=== PATIENT | male | born 1990 | race Caucasian/White ===

== ENCOUNTER 2017-03-08 01:40 | Emergency (ER) | payer MEDICAID ==
[~2017-03-08] VITALS: Ht 175.3 cm; Wt 73.0 kg
[2017-03-08] MEDS ORDERED: TETANUS, DIPHTHERIA, PERTUSSIS VAC/PF 0.5ML (>7YR OLD) IM ONE (02:45)
[2017-03-08] MEDS ORDERED: KETOROLAC 60MG/2ML VIAL IM ONE (02:45)
[2017-03-08] MEDS ORDERED: BACITRACIN ZINC OINT UDPKT TOP ONE (02:45)
[2017-03-08 05:53] VITALS: BP 100/46
== END 2017-03-08 05:56 | disposition home or self-care (01) ==
LOC: ER 02:17
DX: S01.01XA Laceration without foreign body of scalp, initial encounter (principal); F12.10 Cannabis abuse, uncomplicated; M10.9 Gout, unspecified; F17.200 Nicotine dependence, unspecified, uncomplicated; Y08.89XA Assault by other specified means, initial encounter; Y93.01 Activity, walking, marching and hiking; Y99.8 Other external cause status; Y92.410 Unspecified street and highway as the place of occurrence of the external cause
CPT/HCPCS: 12002; 70450; 90471; 90715; 96372; 99284; J1885; X7700; Z7610

== ENCOUNTER 2017-03-20 15:19 | Emergency (ER) | payer MEDICAID ==
[~2017-03-20] VITALS: Ht 172.7 cm; Wt 73.0 kg
[2017-03-20 15:27] VITALS: BP 143/84
== END 2017-03-20 17:00 | disposition home or self-care (01) ==
LOC: ER 16:17
DX: S01.01XD Laceration without foreign body of scalp, subsequent encounter (principal); F17.200 Nicotine dependence, unspecified, uncomplicated; M10.9 Gout, unspecified; X58.XXXD Exposure to other specified factors, subsequent encounter; Y93.89 Activity, other specified; Y99.8 Other external cause status; Y92.89 Other specified places as the place of occurrence of the external cause
CPT/HCPCS: 99281; Z7610; 99282

== ENCOUNTER 2017-09-19 16:17 | Emergency (ER) | payer MEDICAID ==
[~2017-09-19] VITALS: Ht 175.3 cm; Wt 71.0 kg
[2017-09-19 17:05] LABS: BASOPHILS % 0.4 % (0.0-2.0); EOSINOPHILS % 0.2 % (0.0-5.0); HEMATOCRIT. 39.8 % (42.0-52.0); HEMOGLOBIN. 13.6 g/dL (14.0-18.0); LYMPHOCYTES % 27.6 % (20.0-50.0); MEAN CORPUSCULAR HEMOGLOBIN 29.4 pg (28.0-32.0); MEAN CORPUSCULAR VOLUME 86.3 fL (80.0-94.0); MEAN PLATELET VOLUME 8.3 fl (7.4-10.4); MONOCYTES % 10.3 % (2.0-8.0); NEUTROPHILS % 61.5 % (40.0-76.0); PLATELET 361 x1000/uL (130-400); RED BLOOD CELL COUNT 4.62 mill/uL (4.7-6.1)
[2017-09-19 17:09] LABS: CHLORIDE 102 mEq/L (98-107)
[2017-09-19 17:10] LABS: INR 1.2; PROTHROMBIN TIME 12.1 sec (9.4-11.6)
[2017-09-19] MEDS ORDERED: KETOROLAC 60MG/2ML VIAL IM ONE (18:30)
[2017-09-19 21:30] VITALS: BP 118/75
== END 2017-09-19 21:41 | disposition home or self-care (01) ==
LOC: ER 17:50
DX: M79.671 Pain in right foot (principal); M19.90 Unspecified osteoarthritis, unspecified site; M79.642 Pain in left hand; M10.9 Gout, unspecified; F17.200 Nicotine dependence, unspecified, uncomplicated
CPT/HCPCS: 36415; 73630; 80053; 85025; 85610; 96372; 99285; J1885

== ENCOUNTER 2018-07-25 09:55 | Emergency (ER) | payer MEDICAID ==
[~2018-07-25] VITALS: Ht 172.7 cm; Wt 73.0 kg
[2018-07-25 10:08] VITALS: BP 125/68
[2018-07-25] MEDS ORDERED: IBUPROFEN 600MG TABLET PO ONE (12:00)
== END 2018-07-25 12:30 | disposition home or self-care (01) ==
LOC: ER 09:55
DX: L02.31 Cutaneous abscess of buttock (principal); F17.200 Nicotine dependence, unspecified, uncomplicated
CPT/HCPCS: 99283

== ENCOUNTER 2019-02-15 07:58 | Emergency (ER) | payer MEDICAID ==
[~2019-02-15] VITALS: Ht 172.7 cm; Wt 58.0 kg
[2019-02-15 08:06] VITALS: BP 118/75
[2019-02-15] MEDS ORDERED: ACETAMINOPHEN 325MG TABLET PO ONE (08:30)
[2019-02-15] MEDS ORDERED: LIDOCAINE HCL/PF 1% 10 MG/ML 5ML VIAL IJ ONE (08:30)
[2019-02-15] MEDS ORDERED: SULFAMETHOXAZOLE/TRIMETHOPRIM 400/80MG TAB PO ONE (08:30)
[2019-02-15] MEDS ORDERED: BACITRACIN ZINC OINT UDPKT TOP ONE ×2 (08:30→08:45)
[2019-02-15] MEDS ORDERED: LIDOCAINE/PRILOCAINE CREAM 5 GM TUBE TOP ONE (08:30)
[2019-02-15] MEDS ORDERED: BACITRACIN 15GM TUBE TOP ONE (08:45)
== END 2019-02-15 09:30 | disposition home or self-care (01) ==
LOC: ER 08:15
DX: L02.512 Cutaneous abscess of left hand (principal); F12.10 Cannabis abuse, uncomplicated
CPT/HCPCS: 99283; J3490; Z7610

== ENCOUNTER 2019-04-02 18:39 | Inpatient (IN) | payer MEDICAID ==
[~2019-04-02] VITALS: Ht 175.3 cm; Wt 70.3 kg
[2019-04-02] MEDS ORDERED: ACETAMINOPHEN 325MG TABLET PO STA (19:55)
[2019-04-02] MEDS ORDERED: SODIUM CHLORIDE 0.9% 1000ML BAG (SEPSIS BOLUS) IV ONE (20:00)
[2019-04-02] MEDS ORDERED: NYSTATIN 100,000 UNITS/ML 5ML UDC SSW ONE (20:00)
[2019-04-02 21:03] LABS: BASOPHILS % 0.2 % (0.0-2.0); HEMATOCRIT. 25.7 % (42.0-52.0); HEMOGLOBIN. 8.2 g/dL (14.0-18.0); LYMPHOCYTES % 11.1 % (20.0-50.0); MEAN CORPUSCULAR HEMOGLOBIN 26.4 pg (28.0-32.0); MEAN CORPUSCULAR VOLUME 82.2 fL (80.0-94.0); MEAN PLATELET VOLUME 8.5 fl (7.4-10.4); MONOCYTES % 8.4 % (2.0-8.0); NEUTROPHILS % 80.3 % (40.0-76.0); PLATELET 391 x1000/uL (130-400); RED BLOOD CELL COUNT 3.12 mill/uL (4.7-6.1)
[2019-04-02 21:06] LABS: CHLORIDE 103 mEq/L (98-107)
[2019-04-02 21:10] LABS: ETHANOL BLOOD < 10 mg/dL
[2019-04-02 21:17] LABS: CLARITY URINE CLEAR (CLEAR); COLOR URINE DARK YELLOW (YELLOW); KETONES URINE TRACE (NEGATIVE); LEUKOCYTE ESTERASE URINE 1+ (NEGATIVE); NITRITE URINE NEGATIVE (NEGATIVE); OCCULT BLOOD URINE NEGATIVE (NEGATIVE); PROTEIN URINE 2+ (NEGATIVE); SPECIFIC GRAVITY URINE 1.022 (1.005-1.030)
[2019-04-02 21:28] LABS: *AMPHETAMINES SCREEN URINE PRESUMTIVE POSITIVE (NEGATIVE); *BARBITURATES SCREEN URINE NEGATIVE (NEGATIVE); *BENZODIAZEPINES SCREEN URINE NEGATIVE (NEGATIVE); *COCAINE SCREEN URINE NEGATIVE (NEGATIVE); METHADONE URINE SCREEN NEGATIVE (NEGATIVE); OPIATES URINE SCREEN PRESUMTIVE POSITIVE (NEGATIVE)
[2019-04-02 21:29] LABS: CANNABINOID URINE SCREEN NEGATIVE (NEGATIVE); PHENCYCLIDINE URINE SCREEN NEGATIVE (NEGATIVE)
[2019-04-02] MEDS ORDERED: AZITHROMYCIN 500 MG in DEXT 5% WATER 250 ML IV ONE (22:15)
[2019-04-02] MEDS ORDERED: FLUCONAZOLE 100MG TABLET PO ONE (22:15)
[2019-04-02] MEDS ORDERED: CEFTRIAXONE 1 G PREMIX 50 ML IV ONE (22:15)
[2019-04-02] MEDS ORDERED: FLUCONAZOLE 150MG TABLET PO NR (23:45)
[2019-04-03 00:32] LABS: BG BASE EXCESS -1.5 mmol/L (-2.0-2.0); BG CARBOXYHEMOGLOBIN 1.3 % (0.5-1.5); BG DEOXYHEMOGLOBIN 4.4 % (0.0-5.0); BG FRACTION INSPIRED OXYGEN 21; BG HCO3 ACT 23.1 mmol/L (22.0-26.0); BG METHEMOGLOBIN 0.3 % (0.0-1.5); BG OXYGEN SATURATION 95.5 % (92.0-98.5); BG PCO2 37.9 mmHg (35.0-45.0); BG PH 7.402 (7.350-7.450); BG PO2 85.3 mmHg (75.0-100.0); BG SAMPLE SITE LEFT RADIAL; BG TOTAL HEMOGLOBIN 7.7 g/dL (12.0-18.0); BG VENT MODE ROOM AIR
[2019-04-03 12:00] VITALS: BP 104/58
[2019-04-03] MEDS ORDERED: DOCUSATE SODIUM 100MG CAPSULE PO PRN (12:00)
[2019-04-03] MEDS ORDERED: IPRATROPIUM/ALBUTEROL 0.5-3(2.5)MG/3ML NEB NEB PRN (12:00)
[2019-04-03] MEDS ORDERED: ONDANSETRON HCL 4MG/2ML INJ IV PRN (12:00)
[2019-04-03] MEDS ORDERED: MAGNESIUM/ALUMINUM HYDROXIDE/SIMETHICONE 30ML UDC PO PRN (12:00)
[2019-04-03] MEDS ORDERED: CLONIDINE 0.1MG TABLET PO PRN (12:00)
[2019-04-03 13:06] VITALS: BP 107/62
[2019-04-03] MEDS: ENOXAPARIN 40MG/0.4ML SYR SUBCUT SCH (13:44)
[2019-04-03] MEDS: NYSTATIN 100,000 UNITS/ML 5ML UDC SSW SCH ×2 (13:44→18:19)
[2019-04-03] MEDS ORDERED: INFLUENZA VIRUS VACCINE(AFLURIA) 0.5ML SYR IM ONE (14:45)
[2019-04-03] MEDS ORDERED: PNEUMOCOCCAL 23-VAL P-SAC VAC 0.5 ML IM ONE (14:45)
[2019-04-03] MEDS ORDERED: GUAIFENESIN/CODEINE 100-10MG/5ML UDC PO PRN (15:15)
[2019-04-03 16:00] VITALS: BP 99/69
[2019-04-03] MEDS: NICOTINE 14MG PATCH TD SCH (16:15)
[2019-04-03] MEDS ORDERED: SODIUM CHLORIDE 10% FOR INH 15ML VIAL NEB INH NR (17:00)
[2019-04-03 17:02] LABS: HEPATITIS B SURFACE ANTIGEN NEGATIVE
[2019-04-03] MEDS: CEFTRIAXONE 1 G PREMIX 50 ML IV SCH (17:18)
[2019-04-03] MEDS: AZITHROMYCIN 500 MG in DEXT 5% WATER 250 ML IV SCH (17:19)
[2019-04-03 17:31] LABS: HEPATITIS A AB IGM NEGATIVE (NEGATIVE)
[2019-04-03 20:00] VITALS: BP 105/46
[2019-04-03] MEDS: ACETAMINOPHEN 325MG TABLET PO PRN (21:07)
[2019-04-04] VITALS (14 sets, daily range): BP systolic 89–127; BP diastolic 40–90
[2019-04-04] MEDS: NYSTATIN 100,000 UNITS/ML 5ML UDC SSW SCH ×5 (01:44→23:58)
[2019-04-04] MEDS: MORPHINE SULFATE 2 MG/ML CPJ (NOT FOR IM USE) IV PRN ×2 (03:53→17:45)
[2019-04-04] MEDS: LORAZEPAM 2MG/ML CPJ IV PRN (06:48)
[2019-04-04 07:37] LABS: CHLORIDE 109 mEq/L (98-107)
[2019-04-04 07:52] LABS: PHOSPHORUS 3.2 mg/dL (2.5-4.9)
[2019-04-04 08:22] LABS: BASOPHILS % 1.1 % (0.0-2.0); LYMPHOCYTES % 21.8 % (20.0-50.0); MEAN CORPUSCULAR HEMOGLOBIN 26.9 pg (28.0-32.0); MEAN CORPUSCULAR VOLUME 82.8 fL (80.0-94.0); MEAN PLATELET VOLUME 8.5 fl (7.4-10.4); MONOCYTES % 8.5 % (2.0-8.0); NEUTROPHILS % 68.6 % (40.0-76.0); PLATELET 348 x1000/uL (130-400); RED BLOOD CELL COUNT 2.51 mill/uL (4.7-6.1); RED CELL DISTRIBUTION WIDTH 17.9 % (11.6-14.6)
[2019-04-04] MEDS: NICOTINE 14MG PATCH TD SCH (08:31)
[2019-04-04 09:09] LABS: HEMATOCRIT. 20.8 % (42.0-52.0); HEMOGLOBIN. 6.7 g/dL (14.0-18.0)
[2019-04-04] MEDS ORDERED: POTASSIUM CHLORIDE 20MEQ TABLET SR PO NR (09:30)
[2019-04-04] MEDS: ENOXAPARIN 40MG/0.4ML SYR SUBCUT SCH (12:00)
[2019-04-04] MEDS: CEFTRIAXONE 1 G PREMIX 50 ML IV SCH (16:55)
[2019-04-04] MEDS: AZITHROMYCIN 500 MG in DEXT 5% WATER 250 ML IV SCH (17:01)
[2019-04-04] MEDS: ACETAMINOPHEN 325MG TABLET PO PRN (23:58)
[2019-04-05] VITALS: BP 123/78
[2019-04-05] MEDS: ACETAMINOPHEN 325MG TABLET PO PRN (00:02)
[2019-04-05 01:23] LABS: HEMATOCRIT 29.9 % (42.0-52.0); HEMOGLOBIN 9.4 g/dL (14.0-18.0)
[2019-04-05 04:00] VITALS: BP 105/59
[2019-04-05] MEDS: NYSTATIN 100,000 UNITS/ML 5ML UDC SSW SCH ×3 (05:44→17:35)
[2019-04-05 07:13] LABS: BASOPHILS % 0.9 % (0.0-2.0); HEMATOCRIT. 30.9 % (42.0-52.0); HEMOGLOBIN. 9.8 g/dL (14.0-18.0); LYMPHOCYTES % 20.6 % (20.0-50.0); MEAN CORPUSCULAR HEMOGLOBIN 25.8 pg (28.0-32.0); MEAN CORPUSCULAR VOLUME 81.2 fL (80.0-94.0); MEAN PLATELET VOLUME 8.4 fl (7.4-10.4); NEUTROPHILS % 70.5 % (40.0-76.0); PLATELET 381 x1000/uL (130-400); RED BLOOD CELL COUNT 3.81 mill/uL (4.7-6.1); RED CELL DISTRIBUTION WIDTH 20.6 % (11.6-14.6)
[2019-04-05 07:52] LABS: CHLORIDE 108 mEq/L (98-107)
[2019-04-05 08:00] VITALS: BP 114/72
[2019-04-05 08:05] LABS: TOTAL IRON BINDING CAPACITY 181 ug/dL (250-450)
[2019-04-05] MEDS: NICOTINE 14MG PATCH TD SCH (09:00)
[2019-04-05] MEDS: LORAZEPAM 2MG/ML CPJ IV PRN (09:16)
[2019-04-05] MEDS: ENOXAPARIN 40MG/0.4ML SYR SUBCUT SCH (11:51)
[2019-04-05 12:00] VITALS: BP 133/72
[2019-04-05] MEDS ORDERED: IOHEXOL-300 100 ML BOTTLE ONE (12:44)
[2019-04-05] MEDS ORDERED: BISACODYL 10MG SUPP PR NR (14:30)
[2019-04-05] MEDS ORDERED: SORBITOL 70% SOLN 30ML PO NR (15:00)
[2019-04-05 16:00] VITALS: BP 102/60
[2019-04-05] MEDS: CEFTRIAXONE 1 G PREMIX 50 ML IV SCH (16:43)
[2019-04-05] MEDS: AZITHROMYCIN 500 MG in DEXT 5% WATER 250 ML IV SCH (17:35)
[2019-04-05] MEDS ORDERED: FERROUS SULFATE 325MG TABLET PO SCH (17:50)
[2019-04-05 20:00] VITALS: BP 108/64
[2019-04-06] VITALS: BP 112/60
[2019-04-06] MEDS: NYSTATIN 100,000 UNITS/ML 5ML UDC SSW SCH ×2 (00:10→06:40)
[2019-04-06 04:00] VITALS: BP 112/60
[2019-04-06] MEDS: LORAZEPAM 2MG/ML CPJ IV PRN (07:29)
[2019-04-06] MEDS: NICOTINE 14MG PATCH TD SCH (07:29)
[2019-04-06 07:59] LABS: CHLORIDE 106 mEq/L (98-107)
[2019-04-06 08:01] LABS: BASOPHILS % 0.6 % (0.0-2.0); HEMATOCRIT. 33.6 % (42.0-52.0); HEMOGLOBIN. 10.9 g/dL (14.0-18.0); LYMPHOCYTES % 23.8 % (20.0-50.0); MEAN CORPUSCULAR HEMOGLOBIN 26.3 pg (28.0-32.0); MEAN PLATELET VOLUME 8.6 fl (7.4-10.4); MONOCYTES % 11.3 % (2.0-8.0); NEUTROPHILS % 64.3 % (40.0-76.0); PLATELET 377 x1000/uL (130-400); RED BLOOD CELL COUNT 4.15 mill/uL (4.7-6.1); RED CELL DISTRIBUTION WIDTH 19.8 % (11.6-14.6)
[2019-04-06] MEDS ORDERED: VALACYCLOVIR HCL 500MG TABLET PO SCH (09:00)
[2019-04-06] MEDS ORDERED: SULFAMETHOXAZOLE/TRIMETHOPRIM 800/160MG TABLET PO SCH (12:00)
[2019-04-07 10:06] LABS: HIV 1 ABS Positive (Negative); HIV 2 ABS Negative (Negative); HIV SCREEN 4G Reactive (Non Reactive); INTERPRETATION HIV-1 Positive (.)
[2019-04-08 19:10] LABS: *HSV 1 DNA PCR Negative (Negative); *HSV 2 DNA PCR Negative (Negative)
== END 2019-04-06 08:51 | disposition left against medical advice (07) | DRG 890 ==
LOC: ER 18:39 → 6EST 22:57 → ENRESERV 04-03 08:45
PROVIDERS: ADMIT Internal Medicine; ATTEND Internal Medicine
PROC: 30233N1 Transfusion of Nonautologous Red Blood Cells into Peripheral Vein, Percutaneous Approach (ICD-10-PCS; principal; 2019-04-04)
DX: B20 Human immunodeficiency virus [HIV] disease (principal); J96.00 Acute respiratory failure, unspecified whether with hypoxia or hypercapnia; A41.9 Sepsis, unspecified organism; E43 Unspecified severe protein-calorie malnutrition; J18.9 Pneumonia, unspecified organism; B37.0 Candidal stomatitis; N50.89 Other specified disorders of the male genital organs; R62.7 Adult failure to thrive; Z53.29 Procedure and treatment not carried out because of patient's decision for other reasons; F17.210 Nicotine dependence, cigarettes, uncomplicated; F15.10 Other stimulant abuse, uncomplicated; F11.10 Opioid abuse, uncomplicated; N39.0 Urinary tract infection, site not specified; D64.9 Anemia, unspecified; K62.5 Hemorrhage of anus and rectum; Z59.0 Homelessness; Z68.22 Body mass index [BMI] 22.0-22.9, adult
CPT/HCPCS: 36415; 36600; 71045; 71250; 74177; 80048; 80076; 80305; 80320; 81003; 82375; 82607; 82728; 82746; 82805; 83540; 83550; 83605; 83735; 84100; 85014; 85018; 86701; 86702; 86703; 86705; 86709; 86803; 86850; 86900; 86920; 87070; 87340; 87389; 87529; 87804; 93005; 93970; 96365; 99285; J0456; J0696; J1650; J2060; J2270; J7030; J7040; J7060; J7131; P9016; Q9967; G0480